=== PATIENT | male | born 1995 | race Caucasian/White ===

== ENCOUNTER 2016-10-05 02:01 | Emergency (ER) | payer OTHER ==
[~2016-10-05] VITALS: Ht 165.1 cm; Wt 61.0 kg
[2016-10-05 02:19] VITALS: Ht 165.1 cm; Wt 61.0 kg
--- NOTE | 2016-10-05 02:48 | ERD ---
ER Documentation Chief Complaint Date/Time DATE: 10/05/16 TIME: 02:[address] and cough x 3 weeks HPI 21 year old male here for complaints for cough x 3 weeks, dry cough, not having shortness of breath or wheezing. Patient's complaining of sorethroat, burning pain, 5/10 scale, worst upon swallowing. took NyQuil to help with symptoms. Patient does not have any sick contacts. Patient does not have any chest pain or palpitations ROS All systems reviewed and are negative except as per history of present illness. Medications Home Meds Reported Medications [none] Unknown Strength No Conflict Check 10/05/16 Allergies Allergies: Coded Allergies: No Known Allergy (Unverified , 09/15/16) PMhx/Soc Medical and Surgical Hx: pt denies Medical Hx, pt denies Surgical Hx Hx Alcohol Use: No Hx Substance Use: Yes (Marijuana 3xweek) Hx Tobacco Use: No FmHx Family History: No coronary disease, No diabetes, No other Physical Exam Vitals Vital Signs Date Time Temp Pulse Resp B/P Pulse Ox O2 Delivery O2 Flow Rate FiO2 10/05/16 02:19 99.1 74 20 136/91 98 Physical Exam GENERAL: The patient is well developed and appropriate for usual state of health, in no apparent distress. CHEST: Clear to auscultation bilaterally. There are no rales, wheezes or rhonchi. HEART: Regular rate and rhythm. No murmurs, clicks, rubs or gallops. No S3 or S4. ABDOMEN: Soft, nontender and nondistended. Good bowel sounds. No rebound or guarding. No gross peritonitis. No gross organomegaly or masses. No Ziegler sign or McBurney point tenderness. BACK: No midline or flank tenderness. EXTREMITIES: Equal pulses bilaterally. There is no peripheral clubbing, cyanosis or edema. No focal swelling or erythema. Full range of motion. Grossly neurovascularly intact. NEURO: Alert and oriented. Cranial nerves 2-12 intact. Motor strength in all 4 extremities with 5/5 strength. Sensation grossly intact. Normal speech and gait. SKIN: There is no apparent rash or petechia. The skin is warm and dry. HEMATOLOGIC AND LYMPHATIC: There is no evidence of excessive bruising or lymphedema. No gross cervical, axillary, or inguinal lymphadenopathy. Results 24 hrs PROCEDURE: CHEST - 1 VIEW CLINICAL INDICATION: 21-year-old male with cough for 3 weeks. TECHNIQUE: A single frontal AP view of the chest was performed portably. The images were reviewed on a PACS workstation. COMPARISON: None. FINDINGS: The cardiomediastinal silhouette has a normal appearance. There is no evidence for an infiltrate. The pulmonary vascularity is within normal limits. There is no evidence for pneumothorax or pneumomediastinum. The osseous structures are intact. IMPRESSION: No evidence for active cardiopulmonary disease. .Serjio Walters MD, MD Date Time Electronically viewed and signed by .Serjio Walters MD, MD on 10/05/2016 04:09 .M/ Procedures/MDM Medical Decision Making: Patient symptoms are most likely consistent with chronic cough, possible atypical infection, will be treated with oral antibiotics trial. There is low suspicion for Pneumonia at this time since patients lungs sounds are clear, patient O2 saturation is normal and patient doesnt show any respiratory distress. Patients chest xray doesnt show infiltrates or any other cardiopulmonary emergencies at this time. There is low suspicion for other cardiopulmonary emergencies at this time such as CHF, Pulmonary Embolism, Pneumothorax, Aortic Aneurysm or any other cardiopulmonary emergencies at this time. There is low suspicion for sepsis. Patient appears well and is hemodynamically stable. Fever is controlled with medicines. Disposition: Home. Condition: Stable Prescriptions: Guaifenesin with codeine, Zyrtec, ibuprofen, albuterol, azithromycin Instructions: Patient is advised to take medications as prescribed. Patient is advised to rest. Patient advised to increase fluid intake, do humidifier at home and if possible, do salt water gargles. Patient is advised that if symptoms are worse, shortness of breath, uncontrolled fever, stridor, vomiting, worst signs and symptoms to return to emergency department immediately. Otherwise, patient is advised to follow up with primary doctor in 5-7 days. Departure Diagnosis: Primary Impression: Chronic cough Condition: Stable Patient Instructions: Cough, Chronic, Uncertain Cause, (Adult) Additional Instructions: Patient is advised to take medications as prescribed. Patient is advised to rest. Patient advised to increase fluid intake, do humidifier at home and if possible, do salt water gargles. Patient is advised that if symptoms are worse, shortness of breath, uncontrolled fever, stridor, vomiting, worst signs and symptoms to return to emergency department immediately. Otherwise, patient is advised to follow up with primary doctor in 5-7 days. ALICIA GUTIÉRREZ NP Oct 05, 2016 02:48
--- NOTE | 2016-10-05 04:09 | RADRPT ---
PROCEDURE: CHEST - 1 VIEW CLINICAL INDICATION: 21-year-old male with cough for 3 weeks. TECHNIQUE: A single frontal AP view of the chest was performed portably. The images were reviewed on a PACS workstation. COMPARISON: None. FINDINGS: The cardiomediastinal silhouette has a normal appearance. There is no evidence for an infiltrate. T he pulmonary vascularity is within normal limits. There is no evidence for pneumothorax or pneumomed iastinum. The osseous structures are intact. IMPRESSION: No evidence for active cardiopulmonary disease. .Serjio Walters MD, MD Date Time Electronically viewed and signed by .Serjio Walters MD, on 10/05/2016 04:09 .Christian/
[2016-10-05] MEDS ORDERED: ALBU8.5H3 INH (04:22)
[2016-10-05] MEDS ORDERED: GUAI473L22 PO (04:22)
[2016-10-05] MEDS ORDERED: AZIT250T94 PO (04:22)
[2016-10-05] MEDS ORDERED: CETI10CA PO (04:22)
[2016-10-05 04:35] VITALS: BP 116/73; PULSE 63; RESP 18; TEMP 98.2
== END 2016-10-05 04:43 | disposition home or self-care (01) ==
LOC: FTE 02:01
DX: R05 Cough (principal)
CPT/HCPCS: 71010; Z7502

== ENCOUNTER 2016-12-23 18:01 | Emergency (ER) | payer SELFPAY ==
[~2016-12-23] VITALS: Ht 160 cm; Wt 59.0 kg
[~2016-12-23 18:01] MED LIST: ALBU8.5H3 INH; AZIT250T94 PO; CETI10CA PO; GUAI473L22 PO
[2016-12-23 18:03] VITALS: Ht 160 cm; Wt 59.0 kg
== END 2016-12-23 19:20 | disposition left against medical advice (07) ==
LOC: FTE 18:01
DX: Z53.21 Procedure and treatment not carried out due to patient leaving prior to being seen by health care provider (principal)